=== PATIENT | female | born 2005 ===

== ENCOUNTER 2025-03-22 22:55 | Emergency (ER) | payer OTHER, BC, SELFPAY ==
[2025-03-22 23:12] VITALS: BP 131/63; PULSE 68; RESP 16; TEMP 36.8; O2SAT 97; BMI 24.7
--- OUTSIDE RECORDS SUMMARY | 2025-03-23 00:10 | XMS_ITS | Clinical Summary ---
Author Organization Counts include 234 beds at the [facility] Address [address] [place] [place] [address] Care Team Providers Care Professional Nurse Name Role Phone Pcp, None Given Primary Care Provider Unavailabl e Allergies No known active allergies Medications No known medications Social History Tobacco Use Types Packs/Day Years Used Date Smoking Tobacco: Never Smokeless Tobacco: Never Alcohol Use Standard Drinks/Week Comments Never 0 (1 standard drink = 0.6 oz pur e alcohol) Comments Unknown Sex and Gender Information Value Date Recorded Sex Assigned at Not on file Legal Sex Female 12:11 PM [facility] Gender Identity Not on file Sexual Orientation Not on file Last Filed Vital Signs Vital Sign Reading Time Taken Comments Blood Pressure 132/99 05/17/2021 12:55 PM [facility]ST Pulse 54 05/17/2021 12:53 PM [facility] Temperature 35.8 C (96.5 F) 05/17/2021 12:53 PM [facility] Respiratory Rate 16 05/17/2021 12:53 PM [facility] Oxygen Saturation 100% 05/17/2021 12:53 PM [facility] Inhaled Oxygen Concentration - - Weight 63.5 kg (140 lb) 05/17/2021 12:53 PM [facility] Height 160 cm (5' 3) 05/17/2021 12:53 PM [facility] Body Mass Index 24.8 05/17/2021 12:53 PM [facility] Plan of Treatment Not on file Insurance [facility] [employer] Care Teams Professional Nurse Relationship Specialty Start Date End Date Pcp, None Given PCP - General 05/17/21
--- OUTSIDE RECORDS SUMMARY | 2025-03-23 00:10 | XMS_ITS | Patient Health Record ---
Author Organization [facility] Billing Info Address [address] [place] [id number] Care Team Providers Care Advertising Editor Name Role Phone [facility] Primary Care Provider Unavailable Allergies Allergen (clinical drug ingredient) Drug/Non Drug Allergy documented on EMR Reaction Allergy Type Onset Date Status POLLEN EXTRACTS Unknown Drug Allergy A ctive Reason For Referral No Information Medications Medication SIG (Take, Route, Frequency, Duration) Notes Start Date End Date Status HydrOXYzine HCl 10 MG/5ML 7.5ml Orally e very 8 hours as needed for hiccups 05/28/2014 Active Social History Tobacco Use: Social History Observation Description Date Details (start date - stop date) Never Smoker NA - NA Tobacco Status: Question Answer Notes Patient is a never smoker Yes, in househol d Problems Problem Type SNOMED Code ICD Code Onset Dates Problem Status W/U Status Risk Notes Problem [id number] Hiccups (786.8) Active confirmed Problem [id number] Hypertrophy of tonsil and adenoid (474.10) Active confirmed Plan Of Treatment No Information Insurance Providers Payer Name Payer Address Payer Phone Subscriber Number Group Number Insured Name Patient Relationship to Insured Coverage Start Date Coverage End Date [place] [address] [place], [place] [id number] Len Salazar Self - patient is the insured 4 0 Medical (General) History Medical History History ICD Code Asthma Recurrent Tonsillitis Sleep Apnea Surgical History Surgery Date(Month/Year) dental extractions
--- OUTSIDE RECORDS SUMMARY | 2025-03-23 00:10 | XMS_ITS | Referral Summary ---
Author Organization [facility] Address [address] [place] [address] Care Team Providers Care Kettle Girl Name Role Phone Pcp, None Given Primary [...] on file Legal Sex Female 12:11 PM [facility] Gender Identity Not on file Sexual Orientation Not on file Last Filed Vital Signs Vital Sign Reading Time Taken Comments Blood Pressure 132/99 05/17/2021 12:55 PM [facility] Pulse 54 05/17/2021 12:53 PM [facility] Temperature 35.8 C (96.5 F) 05/17/2021 12:53 PM [facility] Respiratory Rate 16 05/17/2021 12:53 PM [facility] Oxygen Saturation 100% 05/17/2021 12:53 PM [facility] Inhaled Oxygen Concentration - - Weight 63.5 kg (140 lb) 05/17/2021 12:53 PM [facility] Height 160 cm (5' 3) 05/17/2021 12:53 PM [facility] Body Mass Index 24.8 05/17/2021 12:53 PM [facility] Plan of Treatment Not on file Insurance [facility] [employer] Care Teams Kettle Girl Relationship Specialty Start Date End Date Pcp, None Given PCP - General 05/17/21
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
== END 2025-03-23 00:10 | disposition home or self-care (01) ==
LOC: ED 03-23 00:09
PROVIDERS: Emergency Provider Family Medicine
DX: R52 Pain, unspecified (principal); V49.50XA Passenger injured in collision with unspecified motor vehicles in traffic accident, initial encounter
CPT/HCPCS: 99283